=== PATIENT | male | born 1995 | race Caucasian/White ===

== ENCOUNTER 2016-09-15 13:25 | Emergency (ER) | payer MEDICAID ==
[2016-09-15] MEDS ORDERED: LORazepam 0.5 MG TABLET PO STA (14:24)
[2016-09-15] MEDS ORDERED: LORazepam 0.5 MG TABLET ONE (14:27)
== END 2016-09-15 15:05 | disposition home or self-care (01) ==
DX: F41.9 Anxiety disorder, unspecified (principal); S60.221A Contusion of right hand, initial encounter; W22.8XXA Striking against or struck by other objects, initial encounter; F17.200 Nicotine dependence, unspecified, uncomplicated
CPT/HCPCS: 73130; 99283; 99284; A9270

== ENCOUNTER 2016-11-18 09:05 | Emergency (ER) | payer MEDICAID | END 2016-11-18 11:31 | disposition left against medical advice (07) | DX: Z53.21 Procedure and treatment not carried out due to patient leaving prior to being seen by health care provider (principal) ==

== ENCOUNTER 2017-01-16 15:00 | Emergency (ER) | payer MEDICAID ==
[2017-01-16 15:06] VITALS: BP 119/73
[2017-01-16] MEDS ORDERED: LORazepam 0.5 MG TABLET PO STA (15:25)
[2017-01-16] MEDS ORDERED: cloNIDine 0.1 MG TABLET PO STA (15:25)
[2017-01-16] MEDS ORDERED: PROMETHAZINE 25 MG TABLET PO STA (15:25)
--- NOTE | 2017-01-16 15:27 | ED Physician Documentation ---
History of Present Illness - Stated complaint Stated Complaint: WITHDRAWAL - Chief complaint Chief Complaint: General - History obtained from History obtained from: Patient - History of Present Illness Timing: Other (21-year-old gentleman with history of heroin abuse, last use was approximately 36 hours ago, he smokes, not injected. Requests medication to help with withdrawal. Declines to speak with the social staff worker. Symptoms include nausea, stomach cramps, skin feeling hot.) Review of Systems Constitutional: reports: Reviewed and negative Cardiac: reports: Reviewed and negative Respiratory: reports: Reviewed and negative PD PAST MEDICAL HISTORY - Past Medical History Past Medical History: No Respiratory: None Endocrine/Autoimmune: None Psych: Anxiety, ADD/ADHD - Past Surgical History Past Surgical History: No - Present Medications Home Medications: Ambulatory Orders Medication Instructions Recorded Confirmed Lorazepam [Ativan] 1 mg PO TID PRN #15 tablet 01/16/17 Promethazine [Phenergan] 25 - 50 mg PO Q6H PRN #15 tab 01/16/17 cloNIDine [Catapres] 0.1 mg PO BID #14 tablet 01/16/17 - Allergies Allergies/Adverse Reactions: Allergies Allergy/AdvReac Type Severity Reaction Status Date / Time No Known Drug Allergies Allergy Verified 01/16/17 15:05 - Social History Does the pt smoke?: Yes Smoking Status: Current every day smoker Does the pt drink ETOH?: No Does the pt have substance abuse?: Yes Substance Use and Type: Marijuana, Heroin - Immunizations Immunizations are current?: Yes PD ED PE NORMAL - Vitals Vital signs reviewed: Yes - General General: Alert and oriented X 3, Other (Uncomfortable) - HEENT HEENT: Other (dilated pupils) - Cardiac Cardiac: RRR, No murmur - Respiratory Respiratory: No respiratory distress, Clear bilaterally - Abdomen Abdomen: Non tender - Derm Derm: No rash - Neuro Neuro: Alert and oriented X 3, Normal speech - Psych Psych: Normal mood, Normal affect Results - Vitals Vitals: Vital Signs - 24 hr 01/16/17 15:04 Temperature 36.8 C Heart Rate 83 Respiratory 18 Rate Blood Pressure 119/73 O2 Saturation 99 Oxygen O2 Source Room air Departure - Departure Disposition: 01 Home, Self Care Clinical Impression: Heroin withdrawal Condition: Good Record reviewed to determine appropriate education?: Yes Instructions: Addiction Heroin Tx Prescriptions: Lorazepam [Ativan] 1 mg PO TID PRN #15 tablet PRN Reason: Anxiety cloNIDine [Catapres] 0.1 mg PO BID #14 tablet Promethazine [Phenergan] 25 - 50 mg PO Q6H PRN #15 tab PRN Reason: Nausea / Vomiting Comments: Call your doctor to arrange a follow up appointment. Make the next available appointment. In the interim return anytime if worse or if new symptoms develop.
[2017-01-16] MEDS ORDERED: PROMETHAZINE 25 MG TABLET ONE (15:29)
[2017-01-16] MEDS ORDERED: cloNIDine 0.1 MG TABLET ONE (15:29)
[2017-01-16] MEDS ORDERED: LORazepam 0.5 MG TABLET ONE (15:29)
== END 2017-01-16 15:36 | disposition home or self-care (01) ==
LOC: ED 15:00
DX: F11.23 Opioid dependence with withdrawal (principal); F17.200 Nicotine dependence, unspecified, uncomplicated
CPT/HCPCS: 99283; A9270; Q0169

== ENCOUNTER 2017-01-25 23:30 | Outpatient (CLI) | payer MEDICAID | END 2017-01-25 23:31 | disposition EMS.NT | LOC: EMS 23:30 | PROVIDERS: ATTEND Surgery | DX: T40.7X1A Poisoning by cannabis (derivatives), accidental (unintentional), initial encounter (principal); T42.4X1A Poisoning by benzodiazepines, accidental (unintentional), initial encounter; R40.0 Somnolence; Y92.009 Unspecified place in unspecified non-institutional (private) residence as the place of occurrence of the external cause ==

== ENCOUNTER 2017-01-26 01:56 | Outpatient (CLI) | payer MEDICAID | END 2017-01-26 01:57 | disposition critical access hospital (66) | LOC: EMS 01:56 | PROVIDERS: ATTEND Surgery | DX: R40.20 Unspecified coma (principal) | CPT/HCPCS: A0425; A0427 ==

== ENCOUNTER 2017-01-26 02:21 | Emergency (ER) | payer MEDICAID ==
--- NOTE | 2017-01-26 02:28 | ED Physician Documentation ---
PD HPI ALTERED MENTAL STATUS - Stated complaint Stated Complaint: AMS - Chief complaint Chief Complaint: Neuro - History obtained from History obtained from: Patient, Family, EMS - History of Present Illness Timing - onset: Unknown Timing - details: Still present in ED Quality / character: Unresponsive Contributing factors: Substance abuse Basline status: Alert and oriented X 3, Ambulatory, Independent Recently seen: Emergency Dept (T+R two weeks ago from this ED for heroin withdrawal, rx ativan and clonidine) - Additional information Additional information: 911 called for unresponsiveness. patient arrives to ED unconscious, unresponsive , but with stable vital signs and protecting airway as well as maintaining good pulse ox. per EMS, patient's mother administered two doses of intranasal narcan 4mg (per dose) without noticeable effect. EMS received information that patient had been given "two sleeping pills" tonight by a friend, uncertain what they were. Review of Systems Unable to obtain: Unresponsive PD PAST MEDICAL HISTORY - Past Medical History Respiratory: None Endocrine/Autoimmune: None Psych: Anxiety, ADD/ADHD - Past Surgical History Past Surgical History: No - Present Medications Home Medications: Ambulatory Orders Medication Instructions Recorded Confirmed Lorazepam [Ativan] 1 mg PO TID PRN #15 tablet 01/16/17 Promethazine [Phenergan] 25 - 50 mg PO Q6H PRN #15 tab 01/16/17 cloNIDine [Catapres] 0.1 mg PO BID #14 tablet 01/16/17 - Allergies Allergies/Adverse Reactions: Allergies Allergy/AdvReac Type Severity Reaction Status Date / Time No Known Drug Allergies Allergy Verified 01/16/17 15:05 - Social History Does the pt smoke?: Yes Smoking Status: Current every day smoker Does the pt drink ETOH?: No Does the pt have substance abuse?: Yes - Immunizations Immunizations are current?: Yes PD ED PE NORMAL - Vitals Vital signs reviewed: Yes - HEENT HEENT: Atraumatic, Moist mucous membranes - Cardiac Cardiac: RRR, No murmur - Respiratory Respiratory: No respiratory distress, Clear bilaterally - Abdomen Abdomen: Non distended, Other (decreased BS) - Derm Derm: Normal color, Warm and dry PD ED PE EXPANDED - General General: No acute distress, Unresponsive - Eyes Eyes: Other (pupils are equal, mid-size and sluggish reaction to light) - Neuro Neuro: Unresponsive - GCS Eye Opening: None Motor: Localizes to Pain Verbal: None Total: 7 Results - Vitals Vitals: Vital Signs - 24 hr 01/26/17 01/26/17 01/26/17 02:23 03:37 04:49 Temperature 35.9 C L 35.8 C L 36.1 C L Heart Rate 60 57 L 56 L Respiratory 12 15 14 Rate Blood Pressure 98/48 L 138/66 H 112/59 L O2 Saturation 98 100 100 01/26/17 01/26/17 01/26/17 05:49 07:30 08:59 Temperature Heart Rate 63 66 72 Respiratory 12 12 18 Rate Blood Pressure 136/80 H 124/75 125/97 H O2 Saturation 100 100 97 Oxygen O2 Source Room air Oxygen Flow Rate 2 - EKG (time done) No standard instances Rate: Rate (enter#) (56) Rhythm: NSR [place]: Normal Intervals: Normal AR QRS: Normal Ischemia: ST elevation c/w repol - Labs Labs: Laboratory Tests 01/26/17 01/26/17 01/26/17 02:48 02:48 03:39 WBC 8.0 RBC 4.49 L Hgb 13.7 L Hct 40.6 L MCV 90.5 MCH 30.5 MCHC 33.7 RDW 12.6 Plt Count 187 MPV 6.7 L Neut # 5.1 Lymph # 1.9 Armstrong # 0.6 Eos # 0.4 Baso # 0.0 Absolute Nucleated RBC 0.00 Nucleated RBCs 0.0 Sodium 139 Potassium 3.8 Chloride 105 Carbon Dioxide 28 Anion Gap 6.0 BUN 16 Creatinine 0.8 Estimated GFR (MDRD) 121 Glucose 97 Calcium 8.7 Urine Opiates Screen POSITIVE H Ur Oxycodone Screen NEGATIVE Urine Methadone Screen NEGATIVE Ur Propoxyphene Screen NEGATIVE Ur Barbiturates Screen NEGATIVE Ur Tricyclics Screen POSITIVE H Ur Phencyclidine Scrn NEGATIVE Ur Amphetamine Screen POSITIVE H U Methamphetamines Scrn POSITIVE H U Benzodiazepines Scrn POSITIVE H Urine Cocaine Screen NEGATIVE U Cannabinoids Screen POSITIVE H Ethyl Alcohol < 5.0 - Rads (name of study) CTH Radiology: Prelim report reviewed, See rad report PD MEDICAL DECISION MAKING - ED course Complexity details: reviewed old records, reviewed results, re-evaluated patient , considered differential, d/w patient, d/w family ED course: arrives unresponsive but stable vitals, protecting airway. unremarkable CTH. UDS suggests (+) for multiple substances (opiates, benzodiazepines, amphetamine , methamphetamine, tricyclics, cannabinoids). During ED stay, he gradually became increasingly awake and alert. His mother arrived and we discussed her concerns and questions; SW consulted. Patient became increasingly agitated and angry during their conversation, and he suddenly became dramatically worse when he couldn't find his backpack because "my stash is in there!" (per patient's exact words). Attempts to calm and reassure him were met with loud and angry responses from patient. IV was removed and he quickly got dressed and walked out of ED through ambulance bay. SW also talked with patient's mother and patient and mother were provided with resources they can contact should he want to seek help for his addiction issues. Departure - Departure Disposition: 01 Home, Self Care Clinical Impression: Heroin use Altered mental status Qualifiers: Altered mental status type: unspecified Qualified Code(s): R41.82 - Altered mental status, unspecified Condition: Good Instructions: ED Drug Abuse General Follow-Up: [facility] [Provider Group] [facility] [Provider Group] Discharge Date/Time: 01/26/17 09:45
[2017-01-26] MEDS ORDERED: SODIUM CHLORIDE 0.9% 1,000 ML IV STA (02:44)
[2017-01-26 03:07] LABS: BUN - BLOOD UREA NITROGEN 16 mg/dL (6-20); CALCIUM 8.7 mg/dL (8.5-10.3); CARBON DIOXIDE - CO2 28 mmol/L (21-32); CHLORIDE 105 mmol/L (101-111); CREATININE 0.8 mg/dL (0.6-1.2); GFR - MDRD 121 (>89); GLUCOSE 97 mg/dL (70-100); POTASSIUM 3.8 mmol/L (3.5-5.0); SODIUM 139 mmol/L (135-145)
[2017-01-26 03:08] LABS: BASOPHILS % (AUTO) 0.6 %; EOSINOPHILS # (AUTO) 0.4 10^3/uL (0.0-0.7); EOSINOPHILS % (AUTO) 4.5 %; HCT - HEMATOCRIT 40.6 % (42.0-52.0); HGB - HEMOGLOBIN 13.7 g/dL (14.0-18.0); LYMPHOCYTES # (AUTO) 1.9 10^3/uL (1.5-3.5); LYMPHOCYTES % (AUTO) 23.5 %; MEAN CORPUSCULAR HEMOGLOBIN 30.5 pg (27.0-31.0); MEAN CORPUSCULAR HGB CONC 33.7 g/dL (32.0-36.0); MEAN CORPUSCULAR VOLUME 90.5 fL (80.0-94.0); MEAN PLATELET VOLUME 6.7 fL (7.4-11.4); MONOCYTES # (AUTO) 0.6 10^3/uL (0.0-1.0); MONOCYTES % (AUTO) 7.8 %; NEUTROPHILS # (AUTO) 5.1 10^3/uL (1.5-6.6); NEUTROPHILS % (AUTO) 63.6 %; RED BLOOD COUNT 4.49 10^6/uL (4.70-6.10); RED CELL DISTRIBUTION WIDTH 12.6 % (12.0-15.0)
--- NOTE | 2017-01-26 04:02 | CT Preliminary Report ---
Exam: CT Head W/O IMPRESSION: 1. Probable right parietal scalp contusion. 2. Otherwise normal head CT. [facility] SITE ID: [id number]
--- NOTE | 2017-01-26 04:04 | CT Report ---
EXAM: CT HEAD EXAM DATE: 01/26/2017 03:39 AM. CLINICAL HISTORY: Decreased mental status, aphasia COMPARISON: None. TECHNIQUE: Multiaxial CT images were obtained from the foramen magnum to the vertex. IV contrast: Non e. Reformats: Coronal. In accordance with CT protocol optimization, one or more of the following dose reduction techniques w ere utilized for this exam: automated exposure control, adjustment of mA and/or KV based on patient s ize, or use of iterative reconstructive technique. FINDINGS: Parenchyma: No intraparenchymal hemorrhage. No evidence of mass, midline shift, or CT findings of inf arction. Tineo-white differentiation is distinct. Extraaxial Spaces: Normal for age. No subdural or epidural collections identified. Ventricles: Normal in size and position. Sinuses: Imaged paranasal sinuses, orbits, and mastoids show no significant abnormality. Bones: No evidence of fracture or calvarial defect. Other: There is high density involving right parietal scalp.. IMPRESSION: 1. Probable right parietal scalp contusion. 2. Otherwise normal head CT. [facility] Referring Provider Line: [phone] SITE ID: [id number]
[2017-01-26 09:01] VITALS: BP 125/97
== END 2017-01-26 09:45 | disposition home or self-care (01) ==
LOC: EDUNIT# → ED 02:21
DX: F11.10 Opioid abuse, uncomplicated (principal); R41.82 Altered mental status, unspecified; F41.9 Anxiety disorder, unspecified; F90.9 Attention-deficit hyperactivity disorder, unspecified type; F17.200 Nicotine dependence, unspecified, uncomplicated
CPT/HCPCS: 36415; 51702; 70450; 80048; 80306; 80320; 85025; 93005; 99285

== ENCOUNTER 2017-01-27 12:02 | Emergency (ER) | payer MEDICAID ==
[2017-01-27 12:16] VITALS: BP 101/56
--- NOTE | 2017-01-27 12:52 | ED Physician Documentation ---
History of Present Illness - Stated complaint Stated Complaint: DETOX - Chief complaint Chief Complaint: General - History obtained from History obtained from: Patient - History of Present Illness Timing: How many days ago (2) Pain level max: 0 Pain level now: 0 Improved by: nothing Worsened by: nothing - Additonal information Additional information: Patient is a 21 year old male with a history of polysubstance abuse, recently seen 2 days ago for polysubstance overdose. States now in withdrawals and trying to get into rehab at [facility]. Requesting medications for rehab. Review of Systems Ten Systems: 10 systems reviewed and negative Constitutional: denies: Fever, Chills Nose: denies: Rhinorrhea / runny nose, Congestion Respiratory: denies: Cough GI: denies: Abdominal Pain, Nausea, Vomiting, Diarrhea : denies: Dysuria Skin: denies: Rash Musculoskeletal: denies: Neck pain, Back pain Neurologic: denies: Headache PD PAST MEDICAL HISTORY - Past Medical History Past Medical History: Yes Cardiovascular: None Respiratory: None Neuro: None Endocrine/Autoimmune: None GI: None : None HEENT: None Psych: Anxiety, ADD/ADHD Musculoskeletal: None - Past Surgical History Past Surgical History: No - Present Medications Home Medications: Ambulatory Orders Medication Instructions Recorded Confirmed Lorazepam [Ativan] 1 mg PO TID PRN #15 tablet 01/16/17 Promethazine [Phenergan] 25 - 50 mg PO Q6H PRN #15 tab 01/16/17 cloNIDine [Catapres] 0.1 mg PO BID #14 tablet 01/16/17 Clonidine HCl 0.1 mg PO BID #14 tablet 01/27/17 Ondansetron Odt [Zofran] 4 mg TL Q6H PRN #10 tablet 01/27/17 - Allergies Allergies/Adverse Reactions: Allergies Allergy/AdvReac Type Severity Reaction Status Date / Time No Known Drug Allergies Allergy Verified 01/16/17 15:05 - Social History Does the pt smoke?: Yes Smoking Status: Current every day smoker Does the pt drink ETOH?: No Does the pt have substance abuse?: Yes - Immunizations Immunizations are current?: Yes PD ED PE NORMAL - Vitals Vital signs reviewed: Yes - General General: Alert and oriented X 3, No acute distress - HEENT HEENT: PERRL, Moist mucous membranes - Neck Neck: Supple, no meningeal sign - Cardiac Cardiac: RRR, Strong equal pulses - Respiratory Respiratory: No respiratory distress, Clear bilaterally - Abdomen Abdomen: Soft, Non tender - Derm Derm: Warm and dry - Neuro Neuro: Alert and oriented X 3 - Psych Psych: Normal mood, Normal affect Results - Vitals Vitals: Vital Signs - 24 hr 01/27/17 12:12 Temperature 36.0 C L Heart Rate 78 Respiratory 14 Rate Blood Pressure 101/56 L O2 Saturation 95 Oxygen O2 Source Room air PD MEDICAL DECISION MAKING - ED course Complexity details: reviewed old records, considered differential, d/w patient ED course: Patient is a 21-year-old male with a long history of drug abuse who is seen here 2 days ago for polysubstance overdose. He requests medications to help with detox. Informed him that I do not feel comfortable prescribing him controlled substances such as Ativan for detox given his past history of polysubstance abuse. He does not currently have an appointment with detox. States that he is trying to get an appointment and that he is going to meet with his road maker today. Will prescribe him clonidine and Zofran for home. Patient counseled regarding signs and symptoms for which I believe and urgent re -evaluation would be necessary. Patient with good understanding of and agreement to plan and is comfortable going home at this time This document was made in part using voice recognition software. While efforts are made to proofread this document, sound alike and grammatical errors may occur. Departure - Departure Disposition: 01 Home, Self Care Clinical Impression: Heroin withdrawal Condition: Good Instructions: ED Narcotic Abuse Follow-Up: your,doctor in 3 days [Other] Prescriptions: Clonidine HCl 0.1 mg PO BID #14 tablet Ondansetron Odt [Zofran] 4 mg TL Q6H PRN #10 tablet PRN Reason: Nausea / Vomiting Comments: Make sure to follow up with drug and alcohol rehab. Return if you worsen.
== END 2017-01-27 13:01 | disposition home or self-care (01) ==
LOC: ED 12:02
DX: F19.939 Other psychoactive substance use, unspecified with withdrawal, unspecified (principal); F41.9 Anxiety disorder, unspecified; F90.1 Attention-deficit hyperactivity disorder, predominantly hyperactive type; F17.200 Nicotine dependence, unspecified, uncomplicated
CPT/HCPCS: 99283